=== PATIENT | male | born 1975 | race Caucasian/White ===

== ENCOUNTER 2016-10-31 20:13 | Emergency (ER) | payer OTHER ==
[2016-10-31 20:19] VITALS: PULSE 113; RESP 20
--- NOTE | 2016-10-31 21:13 | EDPHY ---
H & P Time Seen by Provider: 10/31/16 20:22 HPI/ROS: CHIEF COMPLAINT: left pinky finger laceration HISTORY OF PRESENT ILLNESS: 40-year-old male presents emergency department with a laceration to his left pinky finger from a hedger blade. Tetanus is up- to-date, he is [id number], he has no other complaints. Smoking Status: Never smoked Physical Exam: GEN: Awake, alert, oriented, no acute distress RESP: nl resp effort MSK: Full active range of motion of left pinky finger, 2 point discrimination intact SKIN: 1 cm laceration to distal aspect of left 5th finger through the middle of fingernail Constitutional: Initial Vital Signs Temperature (C) 37.2 C 10/31/16 20:17 Heart Rate 113 H 10/31/16 20:17 Respiratory Rate 20 10/31/16 20:17 Blood Pressure 169/131 H 10/31/16 20:17 O2 Sat (%) 98 10/31/16 20:17 O2 Delivery Mode Room Air Allergies/Adverse Reactions: No Known Allergies Allergy (Unverified 10/31/16 20:19) Home Medications: Medication Instructions Recorded Cephalexin [Keflex] 500 mg PO TID 4 Days 10/31/16 MDM/Departure - MDM Imaging Results: Imaging Impressions Finger X-Ray 10/31/16 20:48 Impression: Likely open nondisplaced fracture of the tuft of the distal phalanx of the 5th finger. Imaging: I viewed and interpreted images myself Procedures: Procedure: Laceration repair. Verbal consent was obtained from the patient. The 1 cm laceration on the left pinky finger was anesthetized using digital block using 1% lidocaine without epinephrine mixed with 0.5% Marcaine without epinephrine. The wound was carefully irrigated by the emergency department industrial hygiene technician. Next, the wound was prepped and draped in sterile fashion and explored to its base with a gloved finger. Open fracture distal tuft. No vascular injury was identified. No foreign bodies were identified. The wound was repaired with 5.0 Prolene, 3 simple interrupted sutures. The wound repair was simple. The procedure was performed by myself. Tetanus and antibiotic status were addressed. Medications Given: Discontinued Medications Cefazolin Sodium/Dextrose (Ancef 1 Gm (Premix)) 50 mls @ 200 mls/hr IV EDNOW ONE PRN Reason: Protocol Stop: 10/31/16 21:28 Last Admin: 10/31/16 21:37 Dose: 50 mls ED Course/Re-evaluation: 40-year-old male presents with a laceration to his left pinky finger and distal tuft fracture. Tetanus is up-to-date. Patient was given a dose of IV Ancef. He will be discharged home with prescription for Keflex. Patient will follow up with Hand surgery. He is given strict return precautions. - Depart Disposition: Home, Routine, Self-Care Clinical Impression: Open fracture of phalanx of left little finger Qualifiers: Encounter type: initial encounter Phalanx: distal Fracture alignment: nondisplaced Qualified Code(s): S62.667B - Nondisplaced fracture of distal phalanx of left little finger, initial encounter for open fracture Condition: Good Instructions: Finger Fracture (ED), Finger Laceration (ED), Cephalexin (By mouth), Hydrocodone/Acetaminophen (By mouth) Additional Instructions: Dressing clean and dry for 3 days. Follow up with the hand surgeon at 1st available appointment, call tomorrow morning to schedule this. Elevate your hand, take your antibiotics as prescribed, return to the emergency department for any signs of infection, increased pain, fevers, other questions or concerns. Prescriptions: Cephalexin [Keflex] 500 mg PO TID 4 Days Referrals: Isacc Amor MD [Medical Doctor] - As per Instructions (Hand doctor on-call)
[2016-10-31] MEDS ORDERED: CEFAZOLIN 1 GM/DEXTROSE/50 ML BAG IV ONE (21:35)
[2016-10-31] MEDS ORDERED: CEPHALEXIN 500MG PREPACK#4 BTL TAKEHOME ONE (21:54)
[2016-10-31] MEDS ORDERED: HYDROCOD/APAP 5/325 PREPACK#6 BTL TAKEHOME ONE (21:54)
[2016-10-31 22:24] VITALS: BP 126/73; TEMP 97.9; O2SAT 97
== END 2016-10-31 22:24 | disposition home or self-care (01) ==
PROC: 0HQGXZZ Repair Left Hand Skin, External Approach (ICD-10-PCS; principal; 2016-10-31)
DX: S62.667B Nondisplaced fracture of distal phalanx of left little finger, initial encounter for open fracture (principal); S61.217A Laceration without foreign body of left little finger without damage to nail, initial encounter; W26.9XXA Contact with unspecified sharp object(s), initial encounter
CPT/HCPCS: 96365; J0690